=== PATIENT | male | born 1960 | race Caucasian/White ===

== ENCOUNTER 2023-09-21 10:37 | Emergency (ER) | payer BC, OTHER ==
[2023-09-21 11:10] VITALS: O2SAT 100
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
[2023-09-21] MEDS: ACETAMINOPHEN 500 MG TABLET PO STA (13:12)
[2023-09-21] MEDS: IBUPROFEN 600 MG TABLET PO STA (13:12)
[2023-09-21 13:56] VITALS: BP 128/70
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
== END 2023-09-21 15:03 | disposition home or self-care (01) ==
LOC: ED 10:37
DX: S66.911A Strain of unspecified muscle, fascia and tendon at wrist and hand level, right hand, initial encounter (principal); S86.811A Strain of other muscle(s) and tendon(s) at lower leg level, right leg, initial encounter; S39.013A Strain of muscle, fascia and tendon of pelvis, initial encounter; S39.012A Strain of muscle, fascia and tendon of lower back, initial encounter; V49.40XA Driver injured in collision with unspecified motor vehicles in traffic accident, initial encounter; F17.200 Nicotine dependence, unspecified, uncomplicated
CPT/HCPCS: 72125; 72131; 72192; 73130; 73562; 99284; A9270

== ENCOUNTER 2024-02-13 08:15 | Outpatient (CLI) | payer BC ==
--- NOTE | 2024-02-13 09:35 | XRAY Report ---
PROCEDURE: Knee 4+V RT INDICATIONS: RIGHT KNEE PAIN TECHNIQUE: 4 views of the right knee(s) were acquired. COMPARISON: None. FINDINGS: Bones: No fractures or dislocations. No suspicious bony lesions. There is mild tricompartmental osteoarthritic type degenerative change involving the patient's right knee with the medial compartment most affected Soft tissues: Small knee joint effusion. No suspicious soft tissue calcifications or masses. IMPRESSION: 1. No evidence for acute osseous abnormality involving the right knee. 2. Small right knee joint effusion. 3. Mild tricompartmental osteoarthritic type degenerative change with the medial compartment most sev erely affected. Reviewed by: Franklyn Deshpande MD on 02/13/2024 9:34 AM PDT Approved by: Franklyn Deshpande MD on 02/13/2024 9:34 AM PDT Station ID: [id number]
== END 2024-02-13 08:16 | disposition home or self-care (01) ==
LOC: DI 08:15
PROVIDERS: ATTEND Orthopaedic Surgery
DX: M25.461 Effusion, right knee (principal); M17.11 Unilateral primary osteoarthritis, right knee